=== PATIENT | female | born 1955 | race African-American/Black ===

== ENCOUNTER 2018-07-29 12:27 | Emergency (ER) | payer BC ==
[~2018-07-29] VITALS: Ht 167.6 cm; Wt 64.0 kg
[2018-07-29] MEDS ORDERED: IV NORMAL SALINE 1000ML BAG 1,000 ML IV ONE (13:00)
[2018-07-29] MEDS ORDERED: DEXTROSE 50% 25 GM / 50ML DISP.SYRIN. IV ONE (13:00)
[2018-07-29] MEDS ORDERED: ONDANSETRON PF 4 MG/2 ML VIAL. IV ONE (13:00)
[2018-07-29 13:13] LABS: BASO # 0.1 x10^3/uL (0.0-0.2); BASO % 1 % (0-3); EOS % 0 % (0-3); HEMATOCRIT 36.4 % (36.0-47.0); HEMOGLOBIN 12.1 g/dL (12.0-15.5); LYMPH # 1.7 x10^3/uL (1.0-4.8); LYMPH % 21 % (24-48); MEAN CORPUSCULAR HEMOGLOBIN 29 pg (25-35); MEAN CORPUSCULAR HGB CONC 33 g/dL (31-37); MEAN CORPUSCULAR VOLUME 87 fL (79-100); MONO # 0.4 x10^3/uL (0.0-1.1); MONO % 5 % (0-9); NEUT % 74 % (31-73); PLATELET COUNT 178 x10^3/uL (140-400); RED BLOOD COUNT 4.16 x10^6/uL (3.50-5.40); RED CELL DISTRIBUTION WIDTH 14.7 % (11.5-14.5); WHITE BLOOD COUNT 8.2 x10^3/uL (4.0-11.0)
[2018-07-29 13:15] LABS: BILIRUBIN,URINE NEGATIVE (NEG); CLARITY,URINE CLEAR; COLOR,URINE YELLOW; NITRITE,URINE NEGATIVE (NEG); PH,URINE 5.5; PROTEIN,URINE NEGATIVE (NEG-TRACE); UROBILINOGEN,URINE 0.2 mg/dL (0.2 mg/dL)
[2018-07-29 13:23] LABS: BACTERIA,URINE MODERATE /HPF (0-FEW); SQUAMOUS EPITHELIAL CELL,UR MANY /LPF
[2018-07-29 13:24] LABS: CREATININE 0.6 mg/dL (0.6-1.0); GFR 122.2; POTASSIUM 3.6 mmol/L (3.5-5.1)
[2018-07-29] MEDS ORDERED: MECLIZINE HCL 12.5 MG TABLET. PO ONE (13:30)
[2018-07-29 13:31] LABS: ALBUMIN 3.4 g/dL (3.4-5.0); ALBUMIN/GLOBULIN RATIO 0.7 (1.0-1.7); MAGNESIUM 1.6 mg/dL (1.8-2.4); TOTAL BILIRUBIN 0.5 mg/dL (0.2-1.0); TOTAL PROTEIN 8.6 g/dL (6.4-8.2)
--- NOTE | 2018-07-29 13:39 | PHYS DOC ---
Past Medical History Past Medical History: Other Additional Past Medical Histor: VERTIGO Alcohol Use: None Drug Use: None Adult General Chief Complaint Chief Complaint: DIZZY/LIGHT HEADED HPI HPI Patient is a 62 year old female who presents with complaining of dizziness. Patient states she has had intermittent episodes of right ear pain and fullness for the last 2 months that usually happen at night with decrease of hearing without ear discharge or fever and chills. Patient complaining of radiation of ear pain to her head as a moderate pain. Patient complaining of constant dizziness since last night that getting worse with movement of his head. Patient denies chest pain, shortness of breath, blurred vision, focal neuro deficit. Patient states she had 1 episode of vomiting and 2 episodes of diarrhea a day for the last 3 days without abdominal pain or sick contact. Patient states she had history of vertigo long time ago. Review of Systems Review of Systems Constitutional: Denies fever or chills [] Eyes: Denies change in visual acuity, redness, or eye pain [] HENT: Denies nasal congestion or sore throat [] Respiratory: Denies cough or shortness of breath [] Cardiovascular: No additional information not addressed in HPI [] GI: Denies abdominal pain, reports nausea, vomiting, diarrhea [] : Denies dysuria or hematuria [] Musculoskeletal: Denies back pain or joint pain [] Integument: Denies rash or skin lesions [] Neurologic: Reports dizziness and headache, denies focal weakness or sensory changes [] Endocrine: Denies polyuria or polydipsia [] All other systems were reviewed and found to be within normal limits, except as documented in this note. Current Medications Current Medications Current Medications Medications (Trade) Dose Ordered Sig/Malissa Start Time Stop Time Status Last Admin Dose Admin Dextrose (Dextrose 50%-Water Syringe) 12.5 gm 1X ONCE 07/29/18 13:00 07/29/18 13:03 DC 07/29/18 13:06 12.5 GM Magnesium Oxide (Magnesium Oxide) 400 mg DAILY 07/29/18 14:00 07/29/18 14:59 DC 07/29/18 13:58 400 MG Meclizine HCl (Antivert) 25 mg 1X ONCE 07/29/18 13:30 07/29/18 13:31 DC 07/29/18 13:56 25 MG Ondansetron HCl (Zofran) 4 mg 1X ONCE 07/29/18 13:00 07/29/18 13:03 DC 07/29/18 13:05 4 MG Sodium Chloride 1,000 ml @ 1,000 mls/hr 1X ONCE 07/29/18 13:00 07/29/18 13:59 DC 07/29/18 13:04 1,000 MLS/HR Allergies Allergies Allergies Coded Allergies Type Severity Reaction Last Updated Verified No Known Drug Allergies 07/29/18 No Physical Exam Physical Exam Constitutional: Well developed, well nourished, mild distress, non-toxic appearance. [] HENT: Normocephalic, atraumatic, bilateral external ears normal, oropharynx dry, no oral exudates, nose normal. [] Eyes: PERRLA, EOMI, conjunctiva normal, no discharge. [] Neck: Normal range of motion, no tenderness, supple, no stridor. [] Cardiovascular:Heart rate regular rhythm, no murmur [] Lungs & Thorax: Bilateral breath sounds clear to auscultation [] Abdomen: Bowel sounds normal, soft, no tenderness, no masses, no pulsatile masses. [] Skin: Warm, dry, no erythema, no rash. [] Back: No tenderness, no CVA tenderness. [] Extremities: No tenderness, no cyanosis, no clubbing, ROM intact, no edema. [] Neurologic: Alert and oriented X 3, normal motor function, normal sensory function, no focal deficits noted. [] Psychologic: Affect normal, judgement normal, mood normal. [] Current Patient Data Vital Signs Vital Signs Date Time Temp Pulse Resp B/P (MAP) Pulse Ox O2 Delivery O2 Flow Rate FiO2 07/29/18 14:41 76 100 07/29/18 12:34 97.7 20 128/58 (81) Room Air 97.7 Lab Values Laboratory Tests Test 07/29/18 12:34 07/29/18 12:40 07/29/18 13:00 07/29/18 14:14 Urine Collection Type Unknown Urine Color Yellow Urine Clarity Clear Urine pH 5.5 Urine Specific [place] 1.025 Urine Protein Negative mg/dL (NEG-TRACE) Urine Glucose (UA) Negative mg/dL (NEG) Urine Ketones (Stick) >=80 mg/dL (NEG) Urine Blood Trace (NEG) Urine Nitrite Negative (NEG) Urine Bilirubin Negative (NEG) Urine Urobilinogen Dipstick 0.2 mg/dL (0.2 mg/dL) Urine Leukocyte Esterase Small (NEG) Urine RBC 6-10 /HPF (0-2) Urine WBC 5-10 /HPF (0-4) Urine Squamous Epithelial Cells Many /LPF Urine Bacteria Moderate /HPF (0-FEW) Urine Mucus Marked /LPF Glucose (Fingerstick) 63 mg/dL (70-99) L 81 mg/dL (70-99) White Blood Count 8.2 x10^3/uL (4.0-11.0) Red Blood Count 4.16 x10^6/uL (3.50-5.40) Hemoglobin 12.1 g/dL (12.0-15.5) Hematocrit 36.4 % (36.0-47.0) Mean Corpuscular Volume 87 fL (79-100) Mean Corpuscular Hemoglobin 29 pg (25-35) Mean Corpuscular Hemoglobin Concent 33 g/dL (31-37) Red Cell Distribution Width 14.7 % (11.5-14.5) H Platelet Count 178 x10^3/uL (140-400) Neutrophils (%) (Auto) 74 % (31-73) H Lymphocytes (%) (Auto) 21 % (24-48) L Monocytes (%) (Auto) 5 % (0-9) Eosinophils (%) (Auto) 0 % (0-3) Basophils (%) (Auto) 1 % (0-3) Neutrophils # (Auto) 6.0 x10^3uL (1.8-7.7) Lymphocytes # (Auto) 1.7 x10^3/uL (1.0-4.8) Monocytes # (Auto) 0.4 x10^3/uL (0.0-1.1) Eosinophils # (Auto) 0.0 x10^3/uL (0.0-0.7) Basophils # (Auto) 0.1 x10^3/uL (0.0-0.2) Sodium Level 138 mmol/L (136-145) Potassium Level 3.6 mmol/L (3.5-5.1) Chloride Level 102 mmol/L (98-107) Carbon Dioxide Level 23 mmol/L (21-32) Anion Gap 13 (6-14) Blood Urea Nitrogen 9 mg/dL (7-20) Creatinine 0.6 mg/dL (0.6-1.0) Estimated GFR (Cockcroft-Gault) 122.2 BUN/Creatinine Ratio 15 (6-20) Glucose Level 83 mg/dL (70-99) Calcium Level 9.0 mg/dL (8.5-10.1) Magnesium Level 1.6 mg/dL (1.8-2.4) L Total Bilirubin 0.5 mg/dL (0.2-1.0) Aspartate Amino Transferase (AST) 23 U/L (15-37) Alanine Aminotransferase (ALT) 10 U/L (14-59) L Alkaline Phosphatase 54 U/L (46-116) Creatine Kinase 72 U/L (26-192) Troponin I Quantitative < 0.017 ng/mL (0.000-0.055) FR-Tro-O-Type Natriuretic Peptide 178 pg/mL (0-124) H Total Protein 8.6 g/dL (6.4-8.2) H Albumin 3.4 g/dL (3.4-5.0) Albumin/Globulin Ratio 0.7 (1.0-1.7) L Laboratory Tests 07/29/18 13:00 Laboratory Tests 07/29/18 13:00 EKG EKG EKG interpreted by me. EKG at 1241 showed normal sinus rhythm at rate of 79, normal MD and QT intervals, no acute ST and T-wave abnormalities. Radiology/Procedures Radiology/Procedures [facility] [address] [place] [address] IMAGING REPORT Signed PATIENT: JOLIE TELLEZ ACCOUNT: [id number] : 1955 LOCATION: ER AGE: 62 SEX: F EXAM STATUS: REG ER ORD. PHYSICIAN: ALBA WILLIAMSON MD REASON: dizziness PROCEDURE: CT HEAD WO CONTRAST EXAM: Head CT without contrast. HISTORY: Dizziness. TECHNIQUE: Computed tomographic images of the head were obtained without contrast. *One or more of the following individualized dose reduction techniques were utilized for this examination: 1. Automated exposure control. 2. Adjustment of the mA and/or kV according to patient size. 3. Use of iterative reconstruction technique. COMPARISON: None. FINDINGS: There is no acute or subacute extra-axial or intraparenchymal hemorrhage. There is no mass effect or midline shift. There is no hydrocephalus. The stafford-white matter differential pattern is intact. There is fluid within the right mastoid air cells and middle ear. The visualized portions the orbits and paranasal sinuses are unremarkable. No suspicious calvarial lesion is seen. There are few small incidental calvarial osseous hemangiomas. IMPRESSION: 1. No acute intracranial finding. 2. Right mastoid air cell and middle ear opacification. This can be seen with otomastoiditis. Electronically signed by: Mima Valdes MD (07/29/2018 1:37 PM) [id number] DICTATED and SIGNED BY: MIMA VALDES MD DATE: 07/29/18 3272 Course & Med Decision Making Course & Med Decision Making Pertinent Labs and Imaging studies reviewed. (See chart for details) Evaluation of patient in ER showed 62-year-old female patient with complaining of right ear problem for 2 months and dizziness since yesterday. Patient had unremarkable physical exam and negative orthostatic vitals. Patient refused to have chest x-ray. CT of head showed mastoiditis. Labs showed UTI. Patient treated with IV fluid and Zofran and meclizine with partial improvement of her condition. Plan discharge patient home with diagnose of mastoiditis and benign positional vertigo and UTI. Dragon Disclaimer Dragon Disclaimer This electronic medical record was generated, in whole or in part, using a voice recognition dictation system. Departure Departure Impression: Primary Impression: Mastoiditis of right side Additional Impressions: Benign positional vertigo Urinary tract infection Acute gastroenteritis Hypomagnesemia Disposition: 01 HOME, SELF-CARE (at 1428) Condition: IMPROVED Referrals: MARY SCOTT MD (PCP) Patient Instructions: Benign Positional Vertigo, Hypomagnesemia, Mastoiditis, Urinary Tract Infection, Viral Gastroenteritis Additional Instructions: Drink plenty of liquids Follow-up with your primary care physician in 3-5 days Return to ER if not getting better Scripts Ondansetron Hcl (ZOFRAN) 4 Mg Tablet 1 TAB PO PRN Q6-8HRS for nausea, #12 TAB Prov: ALBA WILLIAMSON MD 07/29/18 Meclizine Hcl (MECLIZINE HCL) 25 Mg Tablet 1 TAB PO TID for dizziness, #20 TAB Prov: ALBA WILLIAMSON MD 07/29/18 Amoxicillin/Potassium Clav (AUGMENTIN 875-125 TABLET) 1 Each Tablet 1 TAB PO Q12HR, #20 TAB Prov: ALBA WILLIAMSON MD 07/29/18 Problem Qualifiers Additional Impressions: Benign positional vertigo Laterality: right Qualified Codes: H81.11 - Benign paroxysmal vertigo, right ear Urinary tract infection Urinary tract infection type: acute cystitis Hematuria presence: without hematuria Qualified Codes: N30.00 - Acute cystitis without hematuria ALBA WILLIAMSON MD July 29, 2018 13:39
[2018-07-29] MEDS ORDERED: MAGNESIUM OXIDE 400 MG TABLET PO SCH (14:00)
[2018-07-29] MEDS ORDERED: AMOX1TAB61 PO (14:31)
[2018-07-29] MEDS ORDERED: MECL25TA3 PO (14:31)
[2018-07-29] MEDS ORDERED: ONDA4TAB7 PO (14:31)
[2018-07-29 14:41] VITALS: BP 123/62
--- NOTE | 2018-07-30 09:53 | EKG ---
[facility] [address] [place] [address] Test Date: 2018-07-29 Test Time: 12:41:44 Pat Name: JOLIE TELLEZ Department: Room: Gender: F [employer] Re[employer] Associate: : 1955 Requested By: ALBA WILLIAMSON Order Number: [id number] Reading MD: Mohsen Basilio MD Measurements Intervals [place] Rate: 79 P: 59 GA: 150 QRS: 44 QRSD: 80 T: 55 QT: 364 QTc: 423 Interpretive Statements SINUS RHYTHM Electronically Signed On 08-01-2018 14:09:11 CDT by Mohsen Basilio MD
== END 2018-07-29 14:55 | disposition home or self-care (01) ==
LOC: ER 12:27
DX: H81.11 Benign paroxysmal vertigo, right ear (principal); H70.91 Unspecified mastoiditis, right ear; N30.00 Acute cystitis without hematuria; K52.9 Noninfective gastroenteritis and colitis, unspecified; E83.42 Hypomagnesemia
CPT/HCPCS: 36415; 70450; 80053; 81001; 82550; 82962; 83735; 83880; 84484; 85025; 87086; 93005; 96361; 96374; 96375; 99285; J2405; J7030; J8597; J7042

== ENCOUNTER → 2020-01-24 | Outpatient (CLI) | payer BC ==
[~2020-01-24] MED LIST: AMOX1TAB61 PO; MECL-75 PO; ONDA4TAB7 PO
--- NOTE | 2020-01-24 16:11 | KCIC ---
EXAM: Right foot, 3 views. HISTORY: Pain. COMPARISON: None. FINDINGS: 3 views of the right foot are obtained. There is no fracture, dislocation or subluxation. IMPRESSION: No acute osseous finding. Electronically signed by: Mima Stern MD (01/24/2020 4:08 PM) [id number]
== END ==
LOC: KCIC 15:18
PROVIDERS: ATTEND Family Medicine
DX: M79.671 Pain in right foot (principal)
CPT/HCPCS: 73630

== ENCOUNTER 2021-08-08 13:40 | Emergency (ER) | payer BC ==
[~2021-08-08] VITALS: Ht 167.6 cm; Wt 65.0 kg
[2021-08-08 14:10] VITALS: BP 97/53
--- NOTE | 2021-08-08 15:00 | RAD ---
EXAM: Right elbow, 3 views; right forearm, 2 views; right wrist, 3 views. HISTORY: Pain. Fall. COMPARISON: None. FINDINGS: Right elbow: 3 views of the right elbow are obtained. There are mildly displaced fractures involving the anterior coronoid process of the ulna and radial neck. There is no depression of the radial head articular surface. There is no associated elbow effusion. Right forearm and wrist: 2 views of the right forearm and 3 views of the right wrist are obtained. Th ere is a degenerative subchondral cyst and sclerosis or osteophyte lesion involving the ulnar aspect of the lunate. There may also be a small cyst within the triquetrum. No fracture is seen. There is mo derate to severe spurring involving the first carpal metacarpal joint. IMPRESSION: 1. Mildly displaced fractures involving the coronoid process of the ulna and the radial neck, with as sociated elbow effusion. 2. Suspected degenerative subchondral cyst and sclerosis or chronic osteochondral lesion involving th e lunate and cyst involving the triquetrum. Electronically signed by: Mima Stern MD (08/08/2021 2:58 PM) [id number]
--- NOTE | 2021-08-08 17:01 | PHYS DOC ---
Past Medical History Past Medical History: Other Additional Past Medical Histor: VERTIGO Past Surgical History: No Surgical History Smoking Status: Never Smoker Alcohol Use: None Drug Use: None General Adult EDM: Chief Complaint: UPPER EXTREMITY INJURY HPI: HPI: Patient is a 65 year old female with a history of hypotension presenting to the ED today complaining of right elbow, right forearm and right wrist pain, symptoms began yesterday after she fell getting out of the bed. She states she stepped on her bedside step stool and fell down. Denies any loss of consciousness, denies hitting her head on the ground. Reports moderate pain to the affected areas. Describes the pain as sharp and constant worse on flexion of the wrist. Denies anything specifically relieving the pain. Review of Systems: Review of Systems: Constitutional: Denies fever or chills. [] Musculoskeletal: Reports right elbow pain, right forearm pain, right wrist pain Integument: Denies rash. [] Neurologic: Denies headache, focal weakness or sensory changes. [] ] Psychiatric: Denies depression or anxiety. [] Heart Score: C/O Chest Pain: N/A Risk Factors: Risk Factors: DM, Current or recent (<one month) smoker, HTN, HLP, family history of CAD, obesity. Risk Scores: Score 0 - 3: 2.5% MACE over next 6 weeks - Discharge Home Score 4 - 6: 20.3% MACE over next 6 weeks - Admit for Clinical Observation Score 7 - 10: 72.7% MACE over next 6 weeks - Early Invasive Strategies Allergies: Allergies: Allergies Coded Allergies Type Severity Reaction Last Updated Verified No Known Drug Allergies 07/29/18 No Physical Exam: PE: Constitutional: Well developed, well nourished, no acute distress, non-toxic appearance. Skin: Warm, dry, no erythema, no rash. [] Back: No tenderness, no CVA tenderness. [] Extremities: Right upper extremity with no obvious deformity. Tenderness on palpation of the right elbow, right wrist diffusely. Limited range of motion to the right elbow with patient having difficulty with dorsiflexion of the right elbow. Full range of motion to the right wrist, adequate radial, medial, ulnar sensation to the right fingers. +2 right radial pulse. Cap refill less than 2 seconds to right fingers Neurologic: Alert and oriented X 3, normal motor function, normal sensory function, no focal deficits noted. [] Psychologic: Affect normal, judgement normal, mood normal. [] Current Patient Data: Vital Signs: Vital Signs Date Time Temp Pulse Resp B/P (MAP) Pulse Ox O2 Delivery O2 Flow Rate FiO2 08/08/21 14:10 92 97/53 (68) 08/08/21 13:59 98.4 18 100 Room Air 98.4 EKG: EKG: [] Radiology/Procedures: Radiology/Procedures: []PROCEDURE: WRIST 3V RIGHT EXAM: Right elbow, 3 views; right forearm, 2 views; right wrist, 3 views. HISTORY: Pain. Fall. COMPARISON: None. FINDINGS: Right elbow: 3 views of the right elbow are obtained. There are mildly displaced fractures involving the anterior coronoid process of the ulna and radial neck. There is no depression of the radial head articular surface. There is no assoc iated elbow effusion. Right forearm and wrist: 2 views of the right forearm and 3 views of the right wrist are obtained. There is a degenerative subchondral cyst and sclerosis or osteophyte lesion involving the ulnar aspect of the lunate. There may also be a small cyst within the triquetrum. No fracture is seen. There is moderate to severe spurring involving the first carpal metacarpal joint. IMPRESSION: 1. Mildly displaced fractures involving the coronoid process of the ulna and the radial neck, with associated elbow effusion. 2. Suspected degenerative subchondral cyst and sclerosis or chronic osteochondral lesion involving the lunate and cyst involving the triquetrum. Electronically signed by: Angélica Valdes MD (08/08/2021 2:58 PM) [id number] DICTATED and SIGNED BY: ANGÉLICA VALDES MD DATE: 08/08/21 1455 Course & Med Decision Making: Course & Med Decision Making Pertinent Labs and Imaging studies reviewed. (See chart for details) This a 65-year-old female patient presented to the ED today complaining of right elbow pain, right wrist pain, right forearm pain, symptoms began yesterday after she fell getting out of bed. Right elbow, right forearm and right wrist x-rays interpreted by radiologist were noted for mildly displaced fractures involving the coronoid process of the ulna and the radial neck, with associated elbow effusion. Suspected degenerative subchondral cyst and sclerosis or chronic osteochondral lesion involving the mirta awilda and cyst involving the triquetrum. Patient was placed in a long-arm posterior arm splint by the chemical laboratory technician, neurovascular exam done by me is normal. Ice elevation encouraged. Provided orthopedic doctor to call on Tuesday and set up a follow-up appointment. Patient's blood pressure was low on arrival to the ED 78/50 with a heart rate of 98 with no symptoms. Blood pressure was rechecked, 97/53 heart rate in the 90s. This patient reports history of hypertension. She is not on any medications. She states she usually follows up with her PCP. She is currently asymptomatic able to get up and walk with no difficulties. I advised her to contact her PCP on Tuesday and let them know her blood pressures are still running low. Dragon Disclaimer: Hotalot Disclaimer: This electronic medical record was generated, in whole or in part, using a voice recognition dictation system. Departure Departure Impression: Primary Impression: Fall Qualified Codes: W19.XXXA - Unspecified fall, initial encounter Additional Impressions: Fracture of radial neck, right, closed Qualified Codes: S52.131A - Displaced fracture of neck of right radius, initial encounter for closed fracture Ulnar fracture Qualified Codes: S52.091A - Other fracture of upper end of right ulna, initial encounter for closed fracture Hypotension Qualified Codes: I95.9 - Hypotension, unspecified Disposition: 01 HOME / SELF CARE / HOMELESS Condition: STABLE Referrals: MARY SCOTT MD (PCP) Call him on Tuesday and follow-up for your low blood pressure TAMEKA ATKINS II, MD Please call him on Tuesday and set up a follow up appointment Patient Instructions: Elbow Fracture, Radial Head with [facility]hab[facility], Fall Prevention and Home Safety Additional Instructions: You were evaluated in the emergency room for right upper extremity pain, you are noted to have fractures of your radial and ulnar bone at the elbow, please contact the provided orthopedic doctor on Tuesday morning and set up a follow-up appointment in the clinic. Take the prescribed medications as needed for pain. Scripts Hydrocodone Bit/Acetaminophen (HYDROCODONE-APAP 5-325 ) 1 Tab Tablet 0.5 TAB PO PRN Q6HRS PRN for PAIN, #10 TAB 0 Refills Prov: LENI HUFF APRN 08/08/21 LENI HUFF APRN August 08, 2021 17:01
[2021-08-08] MEDS ORDERED: HYDR-2761 PO (17:21)
== END 2021-08-08 17:27 | disposition home or self-care (01) ==
LOC: ER 13:40
DX: S52.091A Other fracture of upper end of right ulna, initial encounter for closed fracture (principal); S52.131A Displaced fracture of neck of right radius, initial encounter for closed fracture; I95.9 Hypotension, unspecified; W06.XXXA Fall from bed, initial encounter; Y93.89 Activity, other specified; Y92.89 Other specified places as the place of occurrence of the external cause; Y99.8 Other external cause status
CPT/HCPCS: 29105; 73080; 73090; 73110; 99284